=== PATIENT | male | born 1945 | race Hispanic/Latino ===

== ENCOUNTER 2023-09-21 06:10 | Day surgery (SDC) | payer MEDICARE ==
[2023-09-20 09:06] VITALS: BMI 31.9
[2023-09-21] MEDS ORDERED: EPINEPHrine 1 MG/ML VIAL ONE (06:20)
[2023-09-21] MEDS ORDERED: Dexamethasone 20 MG/5 ML VIAL ONE (07:34)
[2023-09-21] MEDS ORDERED: fentaNYL 50 mcg/mL 1 mL Vial ONE ×2 (07:34→09:12)
[2023-09-21] MEDS ORDERED: Ondansetron PF 4 MG/2 ML Vial ONE (07:34)
[2023-09-21] MEDS ORDERED: PROPOFOL 80 ML ONE (07:34)
[2023-09-21] MEDS ORDERED: Midazolam HCl 2 mg/2 ml Vial ONE (07:34)
[2023-09-21] MEDS ORDERED: HYDROcodone/Acetaminophen 5/325 mg Tablet ONE (10:02)
== END 2023-09-21 10:45 | disposition home or self-care (01) ==
LOC: CSHSDC 06:10
PROVIDERS: ATTEND Urology
PROC: 0CBV8ZX Excision of Left Vocal Cord, Via Natural or Artificial Opening Endoscopic, Diagnostic (ICD-10-PCS; principal; 2023-09-21)
DX: D10.4 Benign neoplasm of tonsil (principal); J38.00 Paralysis of vocal cords and larynx, unspecified; H26.9 Unspecified cataract; I25.10 Atherosclerotic heart disease of native coronary artery without angina pectoris; I10 Essential (primary) hypertension; F17.200 Nicotine dependence, unspecified, uncomplicated; G47.33 Obstructive sleep apnea (adult) (pediatric); Z79.01 Long term (current) use of anticoagulants; Z79.899 Other long term (current) drug therapy
CPT/HCPCS: 31536; 31622; J0171; J3010; 88305; 88331; J1100; J2250; J2405; J2704